=== PATIENT | male | born 1995 | race Caucasian/White ===

== ENCOUNTER 2016-12-24 01:39 | Inpatient (IN) | payer OTHER ==
[~2016-12-24] VITALS: Ht 175.3 cm; Wt 82.6 kg
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
--- NOTE | 2016-12-24 02:11 | NUR ---
PT MEDICATED WITH TETANUS SHOT IN LEFT ARM PER EMAR.
--- NOTE | 2016-12-24 02:16 | NUR ---
PTS FAMILY AT BEDSIDE. JOSE HASTINGS AT BEDSIDE FOR QUESTIONING. PT NOT ON PEER OR PEC BECAUSE PT WILLINGLY CAME TO HOSPITAL FOR TREATMENT
[2016-12-24 02:31] LABS: ABSOLUTE BASOPHIL COUNT 0.1 /CUMM (0.0-0.2); ABSOLUTE EOSINOPHIL COUNT 0.3 /CUMM (0.0-0.7); ABSOLUTE GRANULOCYTE CT 6.6 /CUMM (1.4-6.5); ABSOLUTE LYMPH COUNT 3.4 /CUMM (1.2-3.4); ABSOLUTE MONOCYTE COUNT 0.8 /CUMM (0.10-0.60); BASOPHIL % 0.9 % (0.0-2.0); EOSINOPHIL % 2.9 % (0-5); GRANULOCYTE % 58.5 % (42.2-75.2); HEMATOCRIT 44.3 % (42-52); MEAN CORPUSCULAR HGB 30.2 PG (27.0-31.0); MEAN CORPUSCULAR VOLUME 88.7 FL (80.0-94.0); MEAN PLATELET VOLUME 9.5 FL (7.4-10.4); PLATELET COUNT 185 /CUMM (130-400); RBC DISTRIBUTION WIDTH 13.5 % (11.5-14.5); WHITE BLOOD CELL COUNT 11.3 /CUMM (4.8-10.8)
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
--- NOTE | 2016-12-24 03:16 | NUR ---
PT BACK FROM CT SCAN AND XRAY
--- NOTE | 2016-12-24 03:38 | NUR ---
POLYTRIM EYE DROPS ADMINISTERED VIA CARINE MORA. EXTRA EYE DROPS FOR PT PLACED IN MED ROOM.
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
--- NOTE | 2016-12-24 03:59 | NUR ---
PATIENT'S FATHER REMAINS AT BEDSIDE IN RECLINER. PATIENT RESTING COMFORTABLY ON STRETCHER, SLEEPING INTERMITTENTLY W/ REGULAR RESPIRATIONS NOTED. SITTER REMAINS W/ PATIENT. AWAITING INITIAL CRISIS EVAL IN AM.
--- NOTE | 2016-12-24 04:48 | NUR ---
PATIENT CONTINUES TO SLEEP ATT HIS TIME W/ REGULAR RESPIRATIONS NOTED. SITTER REMAINS W/ PATIENT. PATIENT'S FATHER REMAINS AT BEDSIDE IN RECLINER.
--- NOTE | 2016-12-24 05:58 | NUR ---
AWOKE PATIENT FOR AM VS. PATIENT CALM AND COOPERATIVE, AWAITING INITIAL CRISIS EVAL. PATIENT'S FATHER REMAINS AT BEDSIDE W/ SITTER.
[2016-12-24] MEDS ORDERED: IBUPROFEN800 M1 PO (06:06)
[2016-12-24] MEDS ORDERED: POLYTRIM EYE DR10 ML OPH (06:06)
--- NOTE | 2016-12-24 07:30 | NUR ---
SLEEPING SOUNDLY ON STRETCHER. RR WNL. FATHER AT BEDSIDE. Informed waiting has been performed.
--- NOTE | 2016-12-24 09:30 | NUR ---
RESTING ON STRETCHER. FATHER AT BEDSIDE. AWAITING CRISIS EVAL. Informed waiting has been performed.
--- NOTE | 2016-12-24 10:00 | NUR ---
PT SPEAKING WITH CRISIS.
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
--- NOTE | 2016-12-24 10:38 | NUR ---
PLAN IS FOR ADMISSION TO [facility]PS. PT AND FATHER AGREEABLE TO PLAN. Informed waiting has been performed.
--- NOTE | 2016-12-24 12:13 | NUR ---
AWAITING ADMISSION TO [facility]. Informed waiting has been performed. CALM/COOPERATIVE, RESTING ON STRETCHER.
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
--- NOTE | 2016-12-24 14:00 | NUR ---
CONTINUE TO AWAIT TO GIVE REPORT TO CPS. Informed waiting has been performed.
--- NOTE | 2016-12-24 16:00 | NUR ---
CONTINUE TO AWAIT TO GIVE CPS REPORT. Informed waiting has been performed.
--- NOTE | 2016-12-24 16:50 | NUR ---
REPORT CALLED TO ED IN CPS.
--- NOTE | 2016-12-24 17:57 | NUR ---
CONTINUES TO AWAIT TRANSPORTATION. Informed waiting has been performed.
[2016-12-24 18:21] VITALS: BP 137/83
[2016-12-24 18:22] VITALS: BP 137/83
[2016-12-24 19:44] VITALS: BP 147/87
[2016-12-24 19:56] VITALS: BP 147/87
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
--- NOTE | 2016-12-24 22:06 | NUR ---
Pt is out in the community interacts with his peers appropriately, compliant and cooperative with the staff. Vital signs are stable appetite is good, No behavioral issues as of this time. Will continue to monitor the pt overnight.
[2016-12-24 23:43] VITALS: BP 128/64
[2016-12-25] VITALS (8 sets, daily range): BP systolic 133–144; BP diastolic 72–80
--- NOTE | 2016-12-25 05:59 | NUR ---
SLEPT WELL OVERNIGHT, NO COMPLAINTS OFFERED.
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
--- NOTE | 2016-12-25 13:42 | NUR ---
PT IS CALM AND COOPERATIVE. HE REPORTED HIS GOAL WAS TO WORK ON HIS ISSUES IN GROUPS. HE IS COMPLIANT WITH HIS MED REGIME AND TREATMENT PLAN.PT DENIED ANY THOUGHTS OF SUICIDE OR SELF HARM
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
--- NOTE | 2016-12-25 13:49 | History & Physical ---
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
--- NOTE | 2016-12-25 16:40 | SOCIAL WORKER TX PLAN PSYCH ---
Treatment Plan - Please Document: - Evidence that there is ongoing collaboration between - the patient and the interdisciplinary team, - including the patient's active participation and - responsibility for engaging in the treatment regimen, - and that the treatment plan is individualized and - relevant to the patient's conditions. - Treatment plan should reflect documentation indicating - that all active therapeutic efforts are included. Strengths/Capabilities: Supportive Family, williness to accept tx, engaged in out pt tx, Physical Limitations (Interventions): none reported Patient Identified Trmt Goals: "I need to stay away from alcohol" Discharge Plan: [facility] dual IOP Problem/Goals #1 Problem #1: suicidal ideation Goal (Short Term): patient will attend 75% of groups on the unit Goal (Second Facing Baster): patient will be able to verbalize goals and hopes for the future Interventions: patient will be offered medication management with the psychiatrist, groups on coping skills, symptom management, accupuncture, relaxation skills, art therapy, goals group, focus group. dining service worker will discuss triggers to impulsive behaviors, strengths and resources towards goals. dining service worker will hold family meeting and plan for aftercare. Problem/Goals #2 Problem #2: alcohol dependence/abuse Goal (Short Term): patient will identify consequences of alcohol use Goal (Skilled Nursing): patient will identify a relapse prevention plan Interventions: patient will be offered groups on relapse prevention, AA, coping skills, stress management. dining service worker will coordinate aftercare. DSM5/PS Stressors/Medical Prob Diagnosis' (DSM 5, Stressors, Medical): Unspecified Depression F41.9, PTSD F43.10 (per pt by hx), Cannabis use d/o f12.20, alcochol use d/o F10.20 Current GAF: 25 Treatment Team - Responsibilities of members of the treatment team include: - Medication Management- MD or EXERCISE PHYSIOLOGY PROFESSOR - Medication Administration and Monitoring- Nurse - Group Therapy- Occupational Therapist - 1:1 Therapy,Disch Planning,family involvement-Building Repair Maintenance Supervisor
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
--- NOTE | 2016-12-25 21:39 | NUR ---
PT IS CALM, COOPERATIVE WITH STAFF AND PEERS, AND COMPLIANT WITH UNIT RULES. PT IS OFTEN IN MILIEU, AND IS INTERACTING WELL WITH OTHERS. MOOD IS STABLE, AFFECT IS EUTHYMIC TO FULL RANGE, COMMUNICATION IS ORGANIZED AND APPEARS NORMAL IN ALL RESPECTS, AND APPETITE IS NORMAL. PT DENIES SI AT THIS TIME.
[2016-12-26] VITALS (9 sets, daily range): BP systolic 126–149; BP diastolic 64–87
--- NOTE | 2016-12-26 06:09 | NUR ---
PT APPEARED TO SLEEP.
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
--- NOTE | 2016-12-26 13:26 | SOCIAL WORKER PROG NOTE PSYCH ---
Social Work Progress Note Progress Note Nikita's girlfriend Susan came in for a supportive meeting today. Dr. Guzmán was also in attendance at the meeting. Gino said he got some sleep, but did have a nightmare which woke him. He feels his mood is good today. He found accupuncture relaxing and would be interested in possibly doing it outpatient if insurance covered it. Susan shared her concerns over Gino bottling up his feeling and not being as forth coming with communication. She would like him to have a therapist to talk to regularly. We discussed his problems with alcohol and how the behavior is effecting his life. He agrees that with Susan that he shouldn't drink. We talked about a referral to [facility] and the reasons it would be beneficial, but he is on medical marijuana and doesn 't seem willing to possibly stop. Susan stated that she feels he is better on the marijuana for sleep. She stated that without it he doesn't sleep and wakes up in terror from nightmares. Gino asked about a referral to [facility]. He said he was connected with them 2-3 years ago. He really like working with Nick Lovell in therapy and would like to see him again. I let him know I would do the referral for him. Talked about discharge for Saturday. Faxed referral to [facility] after he signed a release.
--- NOTE | 2016-12-26 13:27 | NUR ---
PT IS ATTENDING GROUPS AND INTERACTING WITH STAFF AND PEERS IN A CALM AND APPROPRIATE MANNER. HE DENIES ANY THOUGHTS OF SUICIDE OR SELF HARM AT THIS TIME. PT WAS SEEN TODAY BY ORTHOPEDIC SERVICE AND CAST IS PLACED ON R HAND. FINGERS WARM TO TOUCH
--- NOTE | 2016-12-26 13:27 | CP SOUTH PROGRESS NOTE PSYCH ---
Psych (Inpt) Progress Note Progress Note Include the following elements, when applicable: Involvement in the active treatment of the patient with behavioral observations of the patient and the patient's response to the treatment. Review of the ongoing treatment process in the context of the treatment plan. Indication of how multi-disciplinary staff members are carrying out the treatment plan. Plans for future interventions and recommendations for revision of the treatment plan. Liaison with other physicians/providers. Progress Note: PSYCHIATRIST NOTE (COUPLE'S MEETING), 12/26/2016: I discussed this patient's progress thus far, current mental status, treatment and discharge planning with staff team today in the daily morning CHRISTINA and Sulma Mcdonald LCSW, and I also met with patient and his girlfriend in a couple' s session. Girlfriend expressed appropriate concern for most of the patient's substance use issues though she also has a "medical Marijuana card" and does not view his use of MJ to be a problem/issue; we spoke about the likelihood that patient could not be accepted at our dual focus IOP if he insists upon continuing to "medicate" with Marijuana but that we would explore the possibility of his being eligible for the [facility] substance use/dual IOP; for his part, patient also spoke of having a very positive relationship with his former clinician/therapist at [facility], Nick Lovell and would like to be able to see him again. Girlfriend is not concerned with regard to patient being at risk to intentionally harm himself and will welcome him home upon his discharge; she is very much in favor of patient having individual therapy "because he tends to bottle his feelings up until they explode." We discussed the strong association between patient's substance abuse, particularly alcohol and hallucinogens, and most of the most serious and personally dangerous issues/events in his life; patient pledged to complete abstinence from alcohol and hallucinogens, in fact, everything but Marijuana, going forward.
--- NOTE | 2016-12-26 20:45 | NUR ---
PT IS VISIBLE ON UNIT, VISITING WITH GIRLFRIEND IN KITCHEN. NOT MUCH INTERACTION WITH PEERS AND STAFF BUT IS COOPERATIVE AND COMPLIANT. NO COMPLAINTS OR SI REPORTED. PT HAS A STABLE MOOD AND CONSTRICTED AFFECT.
[2016-12-27] VITALS (8 sets, daily range): BP systolic 134–149; BP diastolic 72–78
--- NOTE | 2016-12-27 06:22 | NUR ---
PT APPEARED TO SLEEP.
--- NOTE | 2016-12-27 14:23 | NUR ---
PT VISIBLE IN THE MILIEU TODAY. HIS GOAL WAS TO BE POSITIVE, AND TALK TO CLINICAL STAFF ABOUT DISCHARGE PLANS. PT HAS BEEN GOING TO MOST GROUPS TODAY, AND ACTIVELY PARTICIPATING. HIS INTERACTIONS WITH HIS PEERS ARE POSITIVE, WELL WITH STAFF. HE HAS BEEN COMPLIANT WITH STAFF DIRECTION, AND DENIES THOUGHTS OF HURTING SELF.
--- NOTE | 2016-12-27 16:45 | SOCIAL WORKER PROG NOTE PSYCH ---
Social Work Progress Note Progress Note Gino was active in groups and on the unit. I was able to speak with Negrita at [facility] and she confirmed that Gino would be able to do their dual IOP with a medical marijuana card as long as he showed proof. Intake is scheduled for 01/03 at 2pm. He will meet with Sammie Messer. I asked if he could see Nick Lovell and I was told that they would need to look into it due to insurance reasons. Gino is on Cign[employer]. Gino reported that he was on Cigna when he saw Nick in the past, so it is not clear what the issue is, but maybe it can be worked out. Gino is doing well today. Reported some problems sleeping due to having his new cast on his hand. The cast will be on for about 5 weeks, per Gino. I informed him of the intake appt. at [facility] and how he could do their IOP. We talked about making small steps towards change. He talked about writing positive affirmations/ statements around to stay positive. Discussed getting back into AA and the importance of sobriety towards completing goals. He wants to rejoin a group in [place]. Also talked about Danilo Chi or other meditative practices/ martial arts that he may want to get into. Looking towards discharge for tomorrow late morning/ noon. Girlfriend will pick him up.
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
--- NOTE | 2016-12-27 21:59 | NUR ---
PT IS VISIBLE ON UNIT, VISITING WITH FAMILY AND GIRLFRIEND THROUGHOUT EVENING. ATTENDED WRAP UP MEETING. COOPERATIVE AND COMPLIANT WITH STAFF, SOCIAL WITH PEERS. NO COMPLAINTS OR SI REPORTED. PT HAS A STABLE MOOD AND FULL RANGE AFFECT.
[2016-12-28 07:58] VITALS: BP 142/81
[2016-12-28 08:04] VITALS: BP 142/81
--- NOTE | 2016-12-28 11:59 | SOCIAL WORKER PROG NOTE PSYCH ---
Social Work Progress Note Progress Note Gino's girlfriend arrived to pick him up at 11am. He feels good and ready to go today. Asked for a letter regarding his hospitalization which was provided to him. Wished him well with sobriety and future plans and goals.
--- NOTE | 2016-12-28 12:21 | CP SOUTH PROGRESS NOTE PSYCH ---
Psych (Inpt) Progress Note Progress Note Include the following elements, when applicable: Involvement in the active treatment of the patient with behavioral observations of the patient and the patient's response to the treatment. Review of the ongoing treatment process in the context of the treatment plan. Indication of how multi-disciplinary staff members are carrying out the treatment plan. Plans for future interventions and recommendations for revision of the treatment plan. Liaison with other physicians/providers. Progress Note: PSYCHIATRIST NOTE (DISCHARGE), 12/28/2016: I discussed this patient's progress to date, current mental status, treatment and discharge plans with staff team today in the daily morning ITTM and also met with him again myself in individual session prior to discharging him to [facility] dual diagnosis [facility] where he has an intake scheduled on 01/03/2017 at 2pm with Sammie Messer LCSW; he will also be able to resume visits with his former therapist at [facility], Nick Lovell, in future; patient is very pleased about the latter. Though the [facility] will accept him for entry into their programming while he is using Marijuana so long as he can produce his official [place] "medical" Marijuana card (from Dr. Sarah), I spoke with him once again today about my recommendation that if everything in his life does not straighten out using his current plan he reconsider going "Marijuana-free" for a minimum of 3-6 months to see if that makes any positive difference in his motivation, initiative, energy, etc.; patient agreed to this plan. Currently, patient is euthymic, bright and cheerful in affect, showing no evidence of suicidal or homicidal ideation, plans , intent or impulses and well aware of his safety plan should he ever in future become concerned that he might be at acute risk of self-harm. Patient did pledge to complete abstinence from alcohol and starting to attend AA/NA, as well as aquiring a sponsor. Patient is not currently prescribed any psychotropic medication.
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
--- NOTE | 2016-12-28 12:29 | NUR ---
WAS discharged today to [facility] with follow up at [facility]. Mood is stable, full range of affect. denied thoughts of self harm when asked. given education on suicide prevention, depression and alcohol abuse
== END 2016-12-28 12:21 | DRG 897 ==
LOC: ERH 01:39 → ENPENDDIS 11:13 → ERHI 11:13 → CP SOUTH 11:13
PROVIDERS: Pediatrics; ADMIT Psychiatry & Neurology Addiction Medicine
DX: F12.20 Cannabis dependence, uncomplicated (principal); Z72.89 Other problems related to lifestyle
CPT/HCPCS: 73110-RT; 73130-RT; 74176; 80307; 90714; G0480; J3490